=== PATIENT | female | born 1985 | race Caucasian/White ===

== ENCOUNTER → 2018-01-26 18:07 | Outpatient (REF) | payer OTHER, SELFPAY ==
[2018-01-26 20:29] LABS: Amphetamine/Metha Screen,Urine Negative ng/mL (<1000); Barbiturates Screen,Urine Negative ng/mL (<200); Benzodiazepines Screen,Urine Negative ng/mL (200); Cannabinoid Screen,Urine Negative ng/mL (<50); Cocaine Screen,Urine Negative ng/g (<300); Methadone Screen,Urine Negative ng/mL (<300); Opiate Screen,Urine Negative ng/mL (<300); Phencyclidine Screen,Urine Negative ng/mL (<25)
== END ==
LOC: LAB 18:07
PROVIDERS: Visit Provider Nurse Practitioner Family
DX: Z79.899 Other long term (current) drug therapy (principal)
CPT/HCPCS: 80305

== ENCOUNTER → 2018-02-22 15:05 | Outpatient (CLI) | payer OTHER, SELFPAY ==
--- NOTE | 2018-02-22 15:07 | MR_ITS ---
MR cervical spine wo con, MR 3-d myelogram/MRCP HISTORY: Prior HX neck surgery 1026. Right sided neck pain with pain and numbness radiating down rt arm. Symptoms x3wks. No trauma. Headache. Neck pain when turning head from side to side. Pain radiates into rt scapula and bilateral clavicles. ITS.REASON: neck pain, parathesia ORDERING PHYSICIAN: Ishaan Connor PATIENT AGE: 32 years COMPARISON: MRI 03/20/2016 TECHNIQUE: Standard multiplanar multiecho sequences are performed without contrast. 3-D MIP and myelographic images are also rendered and reviewed FINDINGS: There is normal alignment. The craniocervical junction has an unremarkable appearance. C2-C3: Minimal central disc protrusion versus prominent posterior longitudinal ligament without mass effect. C3-C4: Mild prominence of the posterior longitudinal ligament without mass effect. C4-C5: Unremarkable. C5-C6: Artifact from previous surgery with anterior cervical bone plate. Previously noted paracentral disc protrusion not apparent. No obvious epidural collections. C6-C7 and C7-T1 have an unremarkable appearance. IMPRESSION: 1. Postsurgical changes from prior anterior cervical disc fusion at C5-C6. No residual or recurrent disc herniation evident. 2. Mild prominence of the posterior longitudinal ligament at C2-C3 and C3-C4 without neural impingement
== END ==
PROVIDERS: Family Provider Family Medicine; PCP Nurse Practitioner Family; Visit Provider Nurse Practitioner Family
DX: M54.2 Cervicalgia (principal)
CPT/HCPCS: 72141; 76376

== ENCOUNTER → 2018-05-30 15:23 | Outpatient (REF) | payer OTHER, SELFPAY ==
[2018-05-30 18:47] LABS: Basophils # 0.1 K/mm3 (0-0.2); Basophils % 0.7 % (0.1-2.0); Eosinophils # 0.4 K/mm3 (0.0-0.4); Eosinophils % 5.4 % (0.1-12.0); Hematocrit 38.3 % (37.0-47.0); Hemoglobin 11.8 g/dL (12.2-16.2); Lymphocytes # 2.3 K/mm3 (0.7-4.5); Lymphocytes % 28.2 K/mm3 (10-50); Mean Corpuscular HGB Conc 30.8 g/dL (31.8-35.4); Mean Corpuscular Hemoglobin 26.6 pg (27.0-31.2); Mean Corpuscular Volume 86.3 fl (81-99); Mean Platelet Volume 7.4 fl (7.4-10.4); Monocytes # 0.5 K/mm3 (0.1-1.0); Monocytes % 5.6 % (1.7-9.3); Neutrophils # 4.8 K/mm3 (1.8-7.8); Neutrophils % 60.1 % (37.0-80.0); Platelet Count 420 K/mm3 (142-424); Red Blood Count 4.44 M/mm3 (4.20-5.40); Red Cell Distribution Width 14.6 % (11.5-17.5)
[2018-05-30 19:11] LABS: Alanine Aminotransferase 23 U/L (12-78); Albumin Level 3.6 gm/dL (3.4-5.0); Albumin/Globulin Ratio 1.2 (1.1-1.8); Alkaline Phosphatase 65 U/L (46-116); Anion Gap 12.1 mEq/L (5-15); Aspartate Amino Transferase 15 U/L (15-37); Bilirubin,Total 0.3 mg/dL (0.2-1.0); Blood Urea Nitrogen 7 mg/dL (7-18); Calcium 8.9 mg/dL (8.5-10.1); Carbon Dioxide 27 mmol/L (21.0-32.0); Chloride 111 mmol/L (98-107); Chol/HDL Ratio 2.7 (1-3.5); Cholesterol 146 mg/dL (140-200); Creatinine,Serum 0.73 mg/dL (0.55-1.02); Estimated Glomerular Filt Rate 93 ml/min (>60); Free T4 (Free Thyroxine) 0.89 ng/dl (0.76-1.46); GFR (African American) 113 ML/MIN (>60); Glucose 85 mg/dL (74-106); HDL Cholesterol 55 mg/dL (29-89); LDL Cholesterol 81 mg/dL (0-130); Potassium 4.1 mmoL/L (3.5-5.1); Sodium 146 mmol/L (136-145); Thyroid Stimulating Hormone 1.88 uIU/ml (0.358-3.740); Total Protein,Serum 6.6 gm/dL (6.4-8.2); Triglycerides 51 mg/dL (30-200); VLDL Cholesterol 10 mg/dL (0-40)
[2018-05-30 19:22] LABS: Amphetamine/Metha Screen,Urine Negative ng/mL (<1000); Barbiturates Screen,Urine Negative ng/mL (<200); Benzodiazepines Screen,Urine Negative ng/mL (<200); Cannabinoid Screen,Urine Negative ng/mL (<50); Cocaine Screen,Urine Negative ng/mL (<300); Methadone Screen,Urine Negative ng/mL (<300); Opiate Screen,Urine Negative ng/mL (<300); Phencyclidine Screen,Urine Negative ng/mL (<25)
== END ==
LOC: LAB 15:23
PROVIDERS: Visit Provider Nurse Practitioner Family
DX: R53.83 Other fatigue (principal); Z79.899 Other long term (current) drug therapy
CPT/HCPCS: 80053; 80061; 80305; 82652; 84439; 84443; 85025

== ENCOUNTER → 2018-09-22 13:31 | Outpatient (CLI) | payer OTHER, SELFPAY ==
[2018-09-22 17:09] LABS: Amphetamine/Metha Screen,Urine Negative ng/mL (<1000); Barbiturates Screen,Urine Negative ng/mL (<200); Benzodiazepines Screen,Urine Negative ng/mL (<200); Cannabinoid Screen,Urine Negative ng/mL (<50); Cocaine Screen,Urine Negative ng/mL (<300); Methadone Screen,Urine Negative ng/mL (<300); Opiate Screen,Urine Negative ng/mL (<300); Phencyclidine Screen,Urine Negative ng/mL (<25)
== END ==
PROVIDERS: PCP Nurse Practitioner Family; Visit Provider Nurse Practitioner Family
DX: R68.89 Other general symptoms and signs (principal)
CPT/HCPCS: 80305

== ENCOUNTER → 2018-12-06 20:10 | Outpatient (CLI) | payer OTHER, SELFPAY ==
[2018-12-06 20:45] LABS: Amphetamine/Metha Screen,Urine Negative ng/mL (<1000); Barbiturates Screen,Urine Negative ng/mL (<200); Benzodiazepines Screen,Urine Negative ng/mL (<200); Cannabinoid Screen,Urine Negative ng/mL (<50); Cocaine Screen,Urine Negative ng/mL (<300); Methadone Screen,Urine Negative ng/mL (<300); Opiate Screen,Urine Negative ng/mL (<300); Phencyclidine Screen,Urine Negative ng/mL (<25)
== END ==
PROVIDERS: Visit Provider Nurse Practitioner Family
DX: E66.9 Obesity, unspecified (principal)
CPT/HCPCS: 80305

== ENCOUNTER → 2019-04-11 18:15 | Outpatient (CLI) | payer OTHER, SELFPAY ==
[2019-04-11 19:46] LABS: Amphetamine/Metha Screen,Urine Negative ng/mL (<1000); Barbiturates Screen,Urine Negative ng/mL (<200); Benzodiazepines Screen,Urine Negative ng/mL (<200); Cannabinoid Screen,Urine Negative ng/mL (<50); Cocaine Screen,Urine Negative ng/mL (<300); Methadone Screen,Urine Negative ng/mL (<300); Opiate Screen,Urine Negative ng/mL (<300); Phencyclidine Screen,Urine Negative ng/mL (<25)
== END ==
PROVIDERS: Visit Provider Nurse Practitioner Family
DX: Z79.899 Other long term (current) drug therapy (principal)
CPT/HCPCS: 80305

== ENCOUNTER → 2019-05-02 18:17 | Outpatient (CLI) | payer OTHER, SELFPAY ==
[2019-05-02 19:12] LABS: Basophils # 0.1 K/mm3 (0-0.2); Basophils % 0.8 % (0.1-2.0); Eosinophils # 0.3 K/mm3 (0.0-0.4); Eosinophils % 2.9 % (0.1-12.0); Hematocrit 43.2 % (37.0-47.0); Hemoglobin 13.6 g/dL (12.2-16.2); Lymphocytes % 22.3 % (10-50); Mean Corpuscular HGB Conc 31.6 g/dL (31.8-35.4); Mean Corpuscular Hemoglobin 27.8 pg (27.0-31.2); Mean Corpuscular Volume 87.9 fl (81-99); Mean Platelet Volume 7.2 fl (7.4-10.4); Monocytes # 0.4 K/mm3 (0.1-1.0); Monocytes % 4.6 % (1.7-9.3); Neutrophils # 6.4 K/mm3 (1.8-7.8); Neutrophils % 69.4 % (37.0-80.0); Platelet Count 457 K/mm3 (142-424); Red Blood Count 4.91 M/mm3 (4.20-5.40); Red Cell Distribution Width 12.8 % (11.5-17.5); White Blood Count 9.1 K/mm3 (4.8-10.8)
[2019-05-02 19:54] LABS: T4 (Thyroxine) 7.1 ug/dl (4.7-13.3); Thyroid Stimulating Hormone 1.78 uIU/ml (0.358-3.740)
[2019-05-04 18:56] LABS: Vitamin B12 528 pg/mL (232-1245); Vitamin D 25 Hydroxy 39.3 ng/mL (30.0-100.0)
== END ==
PROVIDERS: Visit Provider Nurse Practitioner Family
DX: R21 Rash and other nonspecific skin eruption (principal); R59.9 Enlarged lymph nodes, unspecified
CPT/HCPCS: 82607; 82652; 84436; 84443; 85025

== ENCOUNTER → 2019-05-05 15:54 | Outpatient (CLI) | payer OTHER, SELFPAY ==
[2019-05-05 16:12] LABS: Basophils # 0.1 K/mm3 (0-0.2); Basophils % 0.4 % (0.1-2.0); Eosinophils # 0.1 K/mm3 (0.0-0.4); Eosinophils % 0.3 % (0.1-12.0); Hematocrit 39.7 % (37.0-47.0); Hemoglobin 13.5 g/dL (12.2-16.2); Lymphocytes # 1.7 K/mm3 (0.7-4.5); Lymphocytes % 10.3 % (10-50); Mean Corpuscular HGB Conc 34.1 g/dL (31.8-35.4); Mean Corpuscular Hemoglobin 30.3 pg (27.0-31.2); Mean Corpuscular Volume 88.9 fl (81-99); Mean Platelet Volume 6.8 fl (7.4-10.4); Monocytes # 0.8 K/mm3 (0.1-1.0); Monocytes % 4.7 % (1.7-9.3); Neutrophils # 14.2 K/mm3 (1.8-7.8); Neutrophils % 84.3 % (37.0-80.0); Platelet Count 492 K/mm3 (142-424); Red Blood Count 4.46 M/mm3 (4.20-5.40); Red Cell Distribution Width 13.1 % (11.5-17.5); White Blood Count 16.8 K/mm3 (4.8-10.8)
[2019-05-05 16:23] LABS: MANUAL DIFFERENTIAL MANUAL DIFFERENTIAL (MANUAL DIFF)
[2019-05-05 16:49] LABS: C-Reactive Protein < 0.2 mg/L (0.0-0.9)
[2019-05-05 17:23] LABS: Erythrocyte Sedimentation Rate 13 mm/hr (0-20); Lymphocytes % 13 % (10-50); Monocytes % 3 % (2-9); Neutrophils % 84 % (42-76); Platelet Estimate Slight Increase; RBC Morphology Normal; Total Cells Counted 100
== END ==
PROVIDERS: Visit Provider Nurse Practitioner Family
DX: R79.89 Other specified abnormal findings of blood chemistry (principal)
CPT/HCPCS: 36415; 85007; 85025; 85651; 86140

== ENCOUNTER → 2019-06-12 14:40 | Outpatient (CLI) | payer OTHER, SELFPAY ==
--- NOTE | 2019-06-12 14:41 | US_ITS ---
US soft tissue head and neck CLINICAL INDICATION: ITS.REASON: Swollen lymph nodes ORDERING PHYSICIAN: Kenneth Clay APRN PATIENT AGE: 33 years Comparison: None FINDINGS: Ultrasound performed of the neck. No discrete abnormalities are evident. No sonographic abnormality detected in the areas of palpable concern in either the right or left aspect of the neck. CT of the neck without and with contrast may provide further evaluation if clinically desired. No cystic or solid lesions or enlarged lymph nodes are demonstrated. IMPRESSION: Unremarkable ultrasound of the neck
== END ==
PROVIDERS: PCP Nurse Practitioner Family; Visit Provider Nurse Practitioner Family
DX: R59.9 Enlarged lymph nodes, unspecified (principal)
CPT/HCPCS: 76536

== ENCOUNTER → 2022-06-25 11:13 | Outpatient (CLI) | payer MEDICAID, SELFPAY ==
--- NOTE | 2022-06-25 11:15 | US_ITS ---
FINAL REPORT CLINICAL HISTORY: excessive bleeding FINDINGS: Transvaginal sonographic images of the pelvis were obtained. The uterus measures 8.6 x 4.9 x 4.0 cm. The endometrium measures 5 mm, which is within normal limits. The myometrium is somewhat heterogeneous of uncertain etiology but may represent small uterine fibroids. A scar is noted. The right ovary measures 2.2 cm in length and left ovary measures 3.5 cm in length. Normal blood flow seen to the ovaries. Several follicles are present in the left ovary. There is no evidence of free fluid. IMPRESSION: Somewhat heterogeneous myometrium of uncertain etiology, may represent small uterine fibroids. Reviewed, Interpreted and Dictated by Be Rodriguez III, MD Transcribed by Brenda Palmer Authenticated and [facility]
[2022-06-25 14:52] LABS: Basophils # 0.1 K/mm3 (0-0.2); Basophils % 1.3 % (0.1-2.0); Eosinophils # 0.3 K/mm3 (0.0-0.4); Eosinophils % 4.1 % (0.1-12.0); Hematocrit 34.5 % (37.0-47.0); Hemoglobin 10.7 g/dL (12.2-16.2); Lymphocytes # 1.8 K/mm3 (0.7-4.5); Mean Corpuscular HGB Conc 31.1 g/dL (31.8-35.4); Mean Corpuscular Hemoglobin 24.8 pg (27.0-31.2); Mean Corpuscular Volume 79.9 fl (81-99); Mean Platelet Volume 8.2 fl (7.4-10.4); Monocytes # 0.5 K/mm3 (0.1-1.0); Monocytes % 6.2 % (1.7-9.3); Neutrophils # 5.3 K/mm3 (1.8-7.8); Neutrophils % 66.4 % (37.0-80.0); Platelet Count 547 K/mm3 (142-424); Red Blood Count 4.32 M/mm3 (4.20-5.40); Red Cell Distribution Width 16.8 % (11.5-17.5)
[2022-06-25 14:57] LABS: Chloride 106 mmol/L (98-107); Sodium 138 mmol/L (136-145)
[2022-06-25 14:58] LABS: Potassium 4.6 mmoL/L (3.5-5.1)
[2022-06-25 15:00] LABS: Alanine Aminotransferase 19 U/L (12-78); Albumin Level 4.2 g/dl (3.5-5.0); Albumin/Globulin Ratio 1.7 (1.1-1.8); Alkaline Phosphatase 76 U/L (38-126); Anion Gap 9.6 mEq/L (5-15); Aspartate Amino Transferase 36 U/L (14-36); Blood Urea Nitrogen 6 mg/dl (7-17); Calcium 9.2 mg/dl (8.4-10.2); Carbon Dioxide 27 mmol/L (22.0-30.0); Cholesterol 148 mg/dl (140-200); Estimated Glomerular Filt Rate 95 ml/min (>60); GFR (African American) 115 ML/MIN (>60); Globulin 2.5 g/dL (1.3-3.2); Glucose 84 mg/dl (74-100); Iron 26 ug/dL (37-170); Total Protein,Serum 6.7 g/dl (6.3-8.2); Triglycerides 75 mg/dl (30-150); VLDL Cholesterol 15 mg/dL (0-40)
[2022-06-25 15:01] LABS: Chol/HDL Ratio 3.1 (1-3.5); HDL Cholesterol 48 mg/dl (40-60)
[2022-06-25 15:09] LABS: Total Iron Binding Capacity 415 ug/dL (265-497)
[2022-06-25 15:13] LABS: Bilirubin,Total 0.1 mg/dl (0.2-1.3)
[2022-06-25 15:17] LABS: 25-OH Vitamin D, Total 75.3 ng/mL (30-100)
[2022-06-25 19:50] LABS: Ferritin 10.6 ng/ml (6.24-137)
[2022-06-30 04:54] LABS: Direct LDL Cholesterol 79 mg/dL (100-129)
== END ==
PROVIDERS: PCP Physician Assistant; Visit Provider Physician Assistant
DX: Z00.00 Encounter for general adult medical examination without abnormal findings (principal); N93.9 Abnormal uterine and vaginal bleeding, unspecified; N92.6 Irregular menstruation, unspecified
CPT/HCPCS: 76830; 80053; 80061; 82306; 82728; 83540; 83550; 84443; 85025

== ENCOUNTER → 2023-04-14 23:13 | Outpatient (CLI) | payer MEDICAID, SELFPAY | PROVIDERS: PCP Nurse Practitioner Family; Visit Provider Nurse Practitioner Family | DX: N39.0 Urinary tract infection, site not specified (principal); B96.20 Unspecified Escherichia coli [E. coli] as the cause of diseases classified elsewhere | CPT/HCPCS: 87086; 87088; 87186 ==

== ENCOUNTER → 2023-06-10 23:24 | Outpatient (CLI) | payer MEDICAID, SELFPAY | PROVIDERS: PCP Student in an Organized Health Care Education/Training Program; Visit Provider Student in an Organized Health Care Education/Training Program | DX: N39.0 Urinary tract infection, site not specified (principal); B96.89 Other specified bacterial agents as the cause of diseases classified elsewhere | CPT/HCPCS: 87086; 87088; 87186 ==

== ENCOUNTER 2024-01-21 08:32 | Outpatient (CLI) | payer MEDICAID, SELFPAY ==
--- NOTE | 2024-01-21 08:32 | US_ITS ---
PROCEDURE INFORMATION: Exam: US Right Breast, Complete Exam date and time: 01/21/2024 8:41 AM Age: 38 years old Clinical indication: Breast reduction; Additional info: Right breast pain TECHNIQUE: Imaging protocol: Complete ultrasound of all four quadrants of the right breast and the retroareolar regions, including ultrasound of the axilla when performed. COMPARISON: No relevant prior studies available. FINDINGS: Breast: Sonographic images of the right breast including the retroareolar region, all 4 quadrants and the axilla do not demonstrate any solid or cystic masses. Cursors were placed over normal fat in the 4 o'clock axis. No focal findings with particular attention to the lower outer quadrant where the patient reports focal pain. No architectural distortion or acoustical shadowing. No skin thickening or axillary adenopathy. IMPRESSION: Patient to return for a diagnostic right mammogram for full evaluation of the patient's complaint focal right breast pain. ASSESSMENT: BI-RADS Category 0: Incomplete- Need Additional Imaging Evaluation and/or Prior Mammograms for Comparison.
== END 2024-01-21 23:59 ==
LOC: RAD 08:32
PROVIDERS: PCP Student in an Organized Health Care Education/Training Program; Visit Provider Student in an Organized Health Care Education/Training Program
DX: N64.4 Mastodynia (principal)
CPT/HCPCS: 76641